=== PATIENT | female | born 1955 | race Native Hawaiian/Other Pacific Islander ===

== ENCOUNTER 2017-02-24 15:22 | Outpatient (CLI) | payer OTHER | END 2017-02-24 19:26 | disposition home or self-care (01) | LOC: MAMMO 15:22 | DX: Z12.31 Encounter for screening mammogram for malignant neoplasm of breast (principal) | CPT/HCPCS: G0202-TC ==

== ENCOUNTER 2017-12-10 12:54 | Outpatient (CLI) | payer OTHER | END 2017-12-11 04:43 | disposition home or self-care (01) | LOC: RAD 12:54 | DX: Z13.820 Encounter for screening for osteoporosis (principal) ==

== ENCOUNTER 2018-12-28 07:48 | Outpatient (CLI) | payer OTHER | END 2018-12-28 19:51 | disposition home or self-care (01) | LOC: LABW 07:48 | DX: Z00.00 Encounter for general adult medical examination without abnormal findings (principal); Z12.11 Encounter for screening for malignant neoplasm of colon | CPT/HCPCS: 82272 ==

== ENCOUNTER 2018-12-29 13:54 | Outpatient (CLI) | payer OTHER | END 2018-12-29 23:18 | disposition home or self-care (01) | LOC: LAB 13:54 | DX: Z00.00 Encounter for general adult medical examination without abnormal findings (principal); Z12.11 Encounter for screening for malignant neoplasm of colon | CPT/HCPCS: 82272 ==

== ENCOUNTER 2018-12-30 13:17 | Outpatient (CLI) | payer OTHER | END 2018-12-30 20:10 | disposition home or self-care (01) | LOC: LAB 13:17 | DX: Z00.00 Encounter for general adult medical examination without abnormal findings (principal); Z12.11 Encounter for screening for malignant neoplasm of colon | CPT/HCPCS: 82272 ==

== ENCOUNTER 2022-02-07 17:25 | Outpatient (CLI) | payer OTHER, MEDICARE ==
[2022-02-07 18:37] LABS: PLATELET COUNT 268 K/uL (152-353)
[2022-02-07 19:01] LABS: POTASSIUM 4.4 mmol/L (3.6-5.2)
== END 2022-02-07 20:21 | disposition home or self-care (01) ==
LOC: LAB 17:25
PROVIDERS: ATTEND Internal Medicine
DX: I10 Essential (primary) hypertension (principal); Z13.820 Encounter for screening for osteoporosis; R82.998 Other abnormal findings in urine
CPT/HCPCS: 80053; 80061; 81000; 82306; 84439; 84443; 85027; 87077; 87086; 87088; 87186

== ENCOUNTER 2022-03-13 15:35 | Outpatient (CLI) | payer OTHER, MEDICARE | END 2022-03-13 21:43 | disposition home or self-care (01) | LOC: RAD 15:35 | PROVIDERS: ATTEND Internal Medicine | DX: M54.32 Sciatica, left side (principal) ==

== ENCOUNTER 2022-05-28 11:34 | Outpatient (CLI) | payer OTHER, MEDICARE | END 2022-05-28 18:57 | disposition home or self-care (01) | LOC: LAB 11:34 | PROVIDERS: ATTEND Internal Medicine | DX: E03.9 Hypothyroidism, unspecified (principal) | CPT/HCPCS: 84439; 84443 ==

== ENCOUNTER 2023-02-10 13:59 | Outpatient (CLI) | payer OTHER, MEDICARE ==
[2023-02-10 14:16] LABS: PLATELET COUNT 282 K/uL (152-353)
[2023-02-10 15:07] LABS: POTASSIUM 4.2 mmol/L (3.6-5.2)
== END 2023-02-10 20:37 | disposition home or self-care (01) ==
LOC: LAB 13:59
PROVIDERS: ATTEND Internal Medicine
DX: Z00.00 Encounter for general adult medical examination without abnormal findings (principal); Z79.899 Other long term (current) drug therapy
CPT/HCPCS: 80053; 80061; 81002; 84439; 84443; 85027

== ENCOUNTER 2023-05-01 10:10 | Outpatient (CLI) | payer OTHER, MEDICARE ==
[2023-05-01 10:36] LABS: PLATELET COUNT 264 K/uL (152-353)
[2023-05-01 10:51] LABS: POTASSIUM 3.9 mmol/L (3.6-5.2)
== END 2023-05-01 19:00 | disposition home or self-care (01) ==
LOC: LABW 10:10
PROVIDERS: ATTEND Internal Medicine
DX: M79.672 Pain in left foot (principal); M25.572 Pain in left ankle and joints of left foot
CPT/HCPCS: 36415; 80048; 84550; 85027